=== PATIENT | female | born 1980 | race African-American/Black ===

== ENCOUNTER 2020-11-30 09:39 | Emergency (ER) | payer OTHER ==
[~2020-11-30] VITALS: Ht 165.1 cm; Wt 63.3 kg
[2020-11-30] MEDS ORDERED: DEXAMETHASONE SOD PHOS 4 MG/ML 5 ML VIAL IM ONE (10:45)
[2020-11-30] MEDS ORDERED: IBUPROFEN 600 MG TABLET PO ONE (10:45)
[2020-11-30 11:23] LABS: COVID AG,FIA SOURCE NASOPHARYNGEAL
[2020-11-30 12:55] VITALS: BP 101/67
== END 2020-11-30 13:09 | disposition home or self-care (01) ==
LOC: EMS 09:39
DX: J02.8 Acute pharyngitis due to other specified organisms (principal); B97.89 Other viral agents as the cause of diseases classified elsewhere; Z20.822 Contact with and (suspected) exposure to COVID-19
CPT/HCPCS: 87426; 87430; 96372; 99283; J1100